=== PATIENT | female | born 1940 | race Caucasian/White ===

== ENCOUNTER 2021-06-04 07:32 | Day surgery (SDC) | payer MEDICARE, OTHER ==
[2021-06-04] VITALS (13 sets, daily range): BP systolic 125–186; BP diastolic 58–80
[~2021-06-04] VITALS: Ht 157.5 cm; Wt 73.0 kg
[2021-06-04 08:13] LABS: ABG BASE EXCESS 0.4 mmol/L (-2.0-2.0); ABG HCO3 24.9 mmol/L (22.0-26.0); ABG OXYGEN SATURATION 95.2 % (94-97); ABG PCO2 (T) 39.9 mmHg (32.0-45.0); ABG PO2 (T) 75.3 mmHg (75.0-100.0); ALLEN'S TEST POSITIVE; FCOHb 0.8 % (0.0-3.9); FO2Hb 94.4 % (94-97); TOTAL HEMOGLOBIN 15.1 G/dl (12.0-16.0)
[2021-06-04] MEDS ORDERED: LORazepam 0.5 MG tablet PO PRN (08:20)
[2021-06-04] MEDS ORDERED: nitroGLYCERIN 0.4mg SUBLingual tab SL PRN (08:20)
[2021-06-04] MEDS ORDERED: diphenhydrAMINE 25mg capsule PO PRN (08:20)
[2021-06-04] MEDS ORDERED: FENO145T46 PO (08:22)
[2021-06-04] MEDS ORDERED: TELM20TA8 PO (08:22)
[2021-06-04] MEDS ORDERED: BIOT1CAP3 PO (08:22)
[2021-06-04] MEDS ORDERED: SIMV-42 PO (08:22)
[2021-06-04] MEDS ORDERED: OMEP40CA21 PO (08:22)
[2021-06-04] MEDS ORDERED: ZINC50TA67 PO (08:22)
[2021-06-04] MEDS ORDERED: Biotin PO (08:27)
[2021-06-04] MEDS ORDERED: Zinc (08:27)
[2021-06-04] MEDS ORDERED: iohexol 350 MG/ML 50ML vial IV ONE (08:45)
[2021-06-04] MEDS ORDERED: LIDOcaine 1% (10mg/ml)w/preservative injection 20ml MDV ONE (08:45)
[2021-06-04] MEDS ORDERED: iohexol 350MG/ML 100ml bottle IV ONE (08:45)
[2021-06-04] MEDS ORDERED: midazolam 1 mg/ML 2ml injection ONE (08:45)
[2021-06-04] MEDS ORDERED: fentaNYL/PF 50MCG/1 ML 2ML syringe ONE (08:45)
[2021-06-04 10:58] LABS: ISTAT HGB ART 12.2 g/dl (12.0-16.0); ISTAT Hct ART 36 %PCV (35-48); ISTAT O2 SATURATION ARTERIAL 95 % (95-98); ISTAT SOURCE BLNK
[2021-06-04 10:59] LABS: ISTAT Hct MIX 37 %PCV (35-48); ISTAT O2 SATURATION MIX VENOUS 74 % (60-80); ISTAT SOURCE VEN
[2021-06-04] MEDS ORDERED: normal saline 1000ml 1,000 ML IV SCH (11:05)
[2021-06-04] MEDS ORDERED: HYDROcodone/acetaminophen 10/325mg tab PO PRN (11:05)
[2021-06-04] MEDS ORDERED: OXAZEpam 15mg capsule PO PRN (11:05)
[2021-06-04] MEDS ORDERED: HYDROcodone/acetaminophen 5mg/325mg tablet PO PRN (11:05)
[2021-06-04] MEDS ORDERED: proCHLORperazine 10 MG/2 ml inj IV PRN (11:05)
[2021-06-04] MEDS ORDERED: ondansetron/PF 4mg/2ml inj IV PRN (11:05)
== END 2021-06-04 16:00 | disposition home or self-care (01) ==
LOC: SSTAY O 07:32
PROVIDERS: ATTEND Internal Medicine Cardiovascular Disease
DX: R06.09 Other forms of dyspnea (principal); I25.10 Atherosclerotic heart disease of native coronary artery without angina pectoris; I10 Essential (primary) hypertension; E78.5 Hyperlipidemia, unspecified; K21.9 Gastro-esophageal reflux disease without esophagitis; F40.240 Claustrophobia; I44.7 Left bundle-branch block, unspecified; Z79.899 Other long term (current) drug therapy; Z98.890 Other specified postprocedural states
CPT/HCPCS: 36600; 82803; 85014; 85018; 93005; 93460; 94010; 99152; 99153; C1760; C1769; J1644; J2001; J2250; J3010; Q0163; Q9967; A4620; A6258; C1751

== ENCOUNTER 2023-03-26 15:06 | Outpatient (CLI) | payer MEDICARE, OTHER ==
[~2023-03-26 15:06] MED LIST: Biotin PO; FENO145T46 PO; OMEP40CA21 PO; SIMV-42 PO; TELM20TA8 PO; Zinc
[2023-03-26 15:32] LABS: ABG BASE EXCESS -0.5 mmol/L (-2.0-2.0); ABG HCO3 23.2 mmol/L (22.0-26.0); ABG OXYGEN SATURATION 95.9 % (94-97); ABG PCO2 (T) 35.8 mmHg (32.0-45.0); ABG PO2 (T) 79.2 mmHg (75.0-100.0); ALLEN'S TEST POSITIVE; FMetHb 0.4 % (0.0-1.5); FO2Hb 94.6 % (94-97); TOTAL HEMOGLOBIN 16.2 G/dl (12.0-16.0)
== END 2023-03-26 23:59 | disposition home or self-care (01) ==
LOC: RT 15:06
PROVIDERS: ATTEND Internal Medicine Cardiovascular Disease
DX: R06.02 Shortness of breath (principal)
CPT/HCPCS: 36600; 82803; 85018; 94010; 94727; 94729